=== PATIENT | male | born 1960 | race American Indian/Alaskan Native ===

== ENCOUNTER 2021-08-12 16:43 | Inpatient (IN) | payer SELFPAY ==
[~2021-08-12 16:43] MED LIST: Iopamidol 300 61% 100 ML VIAL FS ONE
[2021-08-12] MEDS ORDERED: Ondansetron PF 4 MG/2 ML Vial ONE (18:01)
[2021-08-12] MEDS ORDERED: Morphine 4 MG/ML VIAL ONE (18:01)
[2021-08-12 18:04] LABS: #Basophils 0.1 10x3/uL (0.0-0.2); #Eosinphils 0.2 10x3/uL (0.0-0.5); #Monocytes 1.3 10x3/uL (0.0-1.1); %Basophils 0.5 % (0.0-2.0); %Eosinophils 1.3 % (0.0-6.0); %Lymphocytes 15.8 % (18.0-47.0); %Monocytes 8.6 % (0.0-10.0); %Neutrophils 73.5 % (40.0-75.0); Hemoglobin 16.4 g/dL (13.5-17.5); Mean Corpuscular HGB CONC 35.7 g/dL (32.0-36.0); Mean Corpuscular Hemoglobin 30.3 pg (27.0-33.0); Mean Corpuscular Volume 84.9 fl (81.2-95.1); Mean Platelet Volume 9.5 fl (7.4-10.4); Platelet Count 212 10x3/uL (150-450); RBC Distribution Width 13.4 % (11.5-14.5); Red Blood Cell (RBC) Count 5.42 10x6/uL (4.32-5.72)
[2021-08-12 18:20] LABS: ALT (SGPT) 6 U/L (8-55); AST (SGOT) 33 U/L (5-34); Albumin 4.2 g/dL (3.5-5.0); Alkaline Phosphatase 108 U/L (40-110); Anion Gap 16 mmol/L (10-20); BUN (Urea Nitrogen) 23 mg/dL (8.4-25.7); Calc. Creatinine Clearance 0 mL/min (70-130); Calcium 9.7 mg/dL (7.8-10.44); Carbon Dioxide 23 mmol/L (22-29); Chloride 96 mmol/L (98-107); Estimated GFR 43; Globulin 5.1 g/dL (2.4-3.5); Glucose 150 mg/dL (70-105); Lipase 133 U/L (8-78); Magnesium 2.7 mg/dL (1.6-2.6); Potassium 3.2 mmol/L (3.5-5.1); Protein, Total 9.3 g/dL (6.0-8.3); Sodium 132 mmol/L (136-145)
[2021-08-12 18:34] LABS: Bilirubin Neg (Negative); Blood, Urine Negative (Negative); Clarity Clear (Clear); Glucose, Urine (Dipstick) >=1000 mg/dL (Negative); Ketone, Urine Negative (Negative); Leukocyte Negative (Negative); Nitrite Negative (Negative); Protein, Urine (Dipstick) 15 mg/dl (Neg-Trace); Specific Gravity, Urine 1.005 (1.002-1.036); Urobilinogen Normal mg/dL (Less than 2)
[2021-08-12 18:49] LABS: Platelet Clumps SLIGHT
[2021-08-12 18:52] LABS: Platelet Morphology Comment PLT clumps seen-ADEQ; RBC Morphology Normal
[2021-08-12 21:04] LABS: SARS-CoV-2 NAA Rapid Test Not Detected (NotDetected)
[2021-08-12] MEDS ORDERED: Piperacillin/Tazobactam 3.375 GM VIAL ONE (21:12)
[2021-08-12 22:06] LABS: Anion Gap 16 mmol/L (10-20); BUN (Urea Nitrogen) 22 mg/dL (8.4-25.7); Calc. Creatinine Clearance 0 mL/min (70-130); Calcium 8.8 mg/dL (7.8-10.44); Carbon Dioxide 21 mmol/L (22-29); Chloride 103 mmol/L (98-107); Estimated GFR 51; Glucose 118 mg/dL (70-105); Potassium 3.5 mmol/L (3.5-5.1); Sodium 136 mmol/L (136-145)
[2021-08-12] MEDS ORDERED: Metoprolol Tartrate 25 MG TAB ONE (22:13)
[2021-08-12] MEDS ORDERED: Dextrose 50% Abboject 50 ML SYRINGE SLOW IVP PRN (22:55)
[2021-08-12] MEDS ORDERED: Guaifenesin DM 100-10/5 ML UDCUP PO PRN (22:55)
[2021-08-12] MEDS ORDERED: HYDROcodone/Acetaminophen 5/325 mg Tablet PO PRN (22:55)
[2021-08-12] MEDS ORDERED: Dextrose 5% in Water 1,000 ML IV PRN (22:55)
[2021-08-12] MEDS ORDERED: Senokot S 8.6-50 MG TAB PO PRN (22:55)
[2021-08-12 23:19] VITALS: BMI 22.9
[2021-08-12] MEDS ORDERED: Trihexyphenidyl 2 MG TAB PO SCH (23:45)
[2021-08-12] MEDS ORDERED: Tamsulosin HCl 0.4 MG CAP PO SCH (23:45)
[2021-08-12] MEDS ORDERED: Carbidopa/Levodopa 10-100 mg Tablet PO SCH (23:45)
[2021-08-12] MEDS ORDERED: clonazePAM 1 MG TAB PO SCH (23:45)
[2021-08-12] MEDS ORDERED: Atorvastatin Calcium 10 MG TAB PO SCH (23:45)
[2021-08-12] MEDS: Lactated Ringer's 1,000 ML IV SCH (23:49)
[2021-08-13] MEDS: Calcium Carbonate 500 MG ChewTAB PO PRN (00:16)
[2021-08-13] MEDS: metroNIDAZOLE 500 MG in Premix Bag 1 BAG IVPB SCH ×3 (00:18→16:50)
[2021-08-13] MEDS: cefTRIAXone\\ROCEPHIN 1 GM in Sodium Chloride 0.9% 100 ML IVPB SCH (00:19)
[2021-08-13] MEDS: Morphine 2 MG/ML VIAL SLOW IVP PRN ×2 (01:01→19:39)
[2021-08-13 04:00] LABS: CRP (Inflammatory) 7.5 mg/dL (= or < 0.5)
[2021-08-13 04:02] LABS: Anion Gap 14 mmol/L (10-20); BUN (Urea Nitrogen) 20 mg/dL (8.4-25.7); Calc. Creatinine Clearance 51 mL/min (70-130); Calcium 8.3 mg/dL (7.8-10.44); Carbon Dioxide 23 mmol/L (22-29); Chloride 105 mmol/L (98-107); Estimated GFR 57; Glucose 103 mg/dL (70-105); Magnesium 2.2 mg/dL (1.6-2.6); Potassium 3.3 mmol/L (3.5-5.1); Sodium 139 mmol/L (136-145)
[2021-08-13 04:03] LABS: #Basophils 0.1 10x3/uL (0.0-0.2); #Eosinphils 0.3 10x3/uL (0.0-0.5); #Monocytes 1.1 10x3/uL (0.0-1.1); #Neutrophils 9.3 10x3/uL (1.5-8.4); %Basophils 0.4 % (0.0-2.0); %Eosinophils 2.3 % (0.0-6.0); %Lymphocytes 17.1 % (18.0-47.0); %Monocytes 8.3 % (0.0-10.0); %Neutrophils 71.7 % (40.0-75.0); Mean Corpuscular Hemoglobin 30.7 pg (27.0-33.0); Mean Corpuscular Volume 85.3 fl (81.2-95.1); Mean Platelet Volume 9.8 fl (7.4-10.4); Platelet Count 185 10x3/uL (150-450); RBC Distribution Width 13.3 % (11.5-14.5); Red Blood Cell (RBC) Count 4.23 10x6/uL (4.32-5.72)
[2021-08-13] MEDS: Potassium Chloride 20 MEQ in Premix Bag 1 BAG IVPB SCH ×2 (06:44→10:49)
[2021-08-13] MEDS ORDERED: Pantoprazole 40 MG VIAL ONE (09:58)
[2021-08-13] MEDS ORDERED: Potassium Chloride 20 MEQ TAB PO SCH (10:00)
[2021-08-13] MEDS: Carbidopa/Levodopa 10-100 mg Tablet PO SCH ×3 (10:26→21:16)
[2021-08-13] MEDS: Trihexyphenidyl 2 MG TAB PO SCH ×2 (10:26→21:55)
[2021-08-13] MEDS: Pantoprazole 40 MG VIAL IVP SCH (10:28)
[2021-08-13] MEDS: Lactated Ringer's 1,000 ML IV SCH ×2 (10:29→21:19)
[2021-08-13 12:47] LABS: Hemoglobin A1c 6.8 % (4.0-6.0)
[2021-08-13] MEDS: Acetaminophen 325 MG TAB PO PRN (15:42)
[2021-08-13] MEDS: Tamsulosin HCl 0.4 MG CAP PO SCH (21:17)
[2021-08-13] MEDS: clonazePAM 1 MG TAB PO SCH (21:55)
[2021-08-13] MEDS: Atorvastatin Calcium 10 MG TAB PO SCH (21:55)
[2021-08-14] MEDS ORDERED: metroNIDAZOLE 500 MG/100 ML BAG ONE (00:13)
[2021-08-14] MEDS: cefTRIAXone\\ROCEPHIN 1 GM in Sodium Chloride 0.9% 100 ML IVPB SCH (00:51)
[2021-08-14] MEDS: metroNIDAZOLE 500 MG in Premix Bag 1 BAG IVPB SCH ×3 (00:52→15:56)
[2021-08-14 05:52] LABS: Anion Gap 15 mmol/L (10-20); BUN (Urea Nitrogen) 21 mg/dL (8.4-25.7); Calc. Creatinine Clearance 58 mL/min (70-130); Calcium 8.4 mg/dL (7.8-10.44); Carbon Dioxide 19 mmol/L (22-29); Chloride 109 mmol/L (98-107); Estimated GFR 66; Glucose 75 mg/dL (70-105); Potassium 3.9 mmol/L (3.5-5.1); Sodium 139 mmol/L (136-145)
[2021-08-14] MEDS: Lactated Ringer's 1,000 ML IV SCH ×2 (06:01→21:06)
[2021-08-14] MEDS ORDERED: Aspirin 81 mg Enteric Coated Tablet PO SCH (09:00)
[2021-08-14] MEDS: Trihexyphenidyl 2 MG TAB PO SCH ×2 (10:15→21:07)
[2021-08-14] MEDS: Pantoprazole 40 MG VIAL IVP SCH (10:16)
[2021-08-14] MEDS: Carbidopa/Levodopa 10-100 mg Tablet PO SCH ×3 (10:16→21:08)
[2021-08-14] MEDS: Acetaminophen 325 MG TAB PO PRN (12:28)
[2021-08-14] MEDS ORDERED: Polyethylene Glycol 3350 17 GM Packet PO SCH (14:15)
[2021-08-14] MEDS ORDERED: Magnesium Citrate 300 ML BOT PO SCH (15:00)
[2021-08-14] MEDS: Calcium Carbonate 500 MG ChewTAB PO PRN (17:16)
[2021-08-14] MEDS: HumaLOG 300 UNITS/3 ML VIAL SC PRN (17:59)
[2021-08-14] MEDS: Ondansetron PF 4 MG/2 ML Vial IVP PRN (18:20)
[2021-08-14 21:01] LABS: Bilirubin Neg (Negative); Blood, Urine 150 (Negative); Clarity Clear (Clear); Glucose, Urine (Dipstick) >=1000 mg/dL (Negative); Ketone, Urine 50 mg/dL (Negative); Leukocyte 25 (Negative); Nitrite Negative (Negative); Protein, Urine (Dipstick) Negative (Neg-Trace); Specific Gravity, Urine 1.015 (1.002-1.036); Urobilinogen Normal mg/dL (Less than 2)
[2021-08-14 21:05] LABS: Urine Culture Reflex No No
[2021-08-14] MEDS: Atorvastatin Calcium 10 MG TAB PO SCH (21:07)
[2021-08-14 21:08] LABS: Bacteria/HPF None Seen HPF (None Seen); Squamous Epithelial None Seen HPF (0-3); WBC/HPF 0-3 HPF (0-3)
[2021-08-14] MEDS: Tamsulosin HCl 0.4 MG CAP PO SCH (21:08)
[2021-08-14] MEDS: clonazePAM 1 MG TAB PO SCH (21:08)
[2021-08-14] MEDS: Polyethylene Glycol 3350 17 GM Packet PO SCH (21:08)
[2021-08-15] MEDS ORDERED: metroNIDAZOLE 500 MG/100 ML BAG ONE (00:03)
[2021-08-15] MEDS: cefTRIAXone\\ROCEPHIN 1 GM in Sodium Chloride 0.9% 100 ML IVPB SCH (00:13)
[2021-08-15] MEDS: metroNIDAZOLE 500 MG in Premix Bag 1 BAG IVPB SCH ×2 (00:13→08:43)
[2021-08-15 04:12] LABS: Actual Bicarbonate (HCO3v) 23 mEq/L (22-28); Base Excess 0.4 mEq/L (-2.0 to +3.0); Calcium, Ionized (venous) 1.06 mmol/L (1.16-1.32); Chloride (VBG) 107 mmol/L (98-106); Hemoglobin (Hb) 12.8 g/dL (13.1-17.2); Potassium (VBG) 3.21 mmol/L (3.70-5.30); Puncture Site Other Site; Sodium 136.3 mmol/L (133-146); pH (venous) 7.48 (7.32-7.43)
[2021-08-15 04:31] LABS: #Eosinphils 0.3 10x3/uL (0.0-0.5); #Monocytes 0.7 10x3/uL (0.0-1.1); #Neutrophils 4.5 10x3/uL (1.5-8.4); %Basophils 0.6 % (0.0-2.0); %Eosinophils 4.5 % (0.0-6.0); %Lymphocytes 19.1 % (18.0-47.0); %Monocytes 10.6 % (0.0-10.0); %Neutrophils 64.8 % (40.0-75.0); Hemoglobin 12.1 g/dL (13.5-17.5); Mean Corpuscular HGB CONC 35.9 g/dL (32.0-36.0); Mean Corpuscular Hemoglobin 30.7 pg (27.0-33.0); Mean Corpuscular Volume 85.5 fl (81.2-95.1); Mean Platelet Volume 9.7 fl (7.4-10.4); Platelet Count 203 10x3/uL (150-450); RBC Distribution Width 13.1 % (11.5-14.5); Red Blood Cell (RBC) Count 3.94 10x6/uL (4.32-5.72); White Blood Cell (WBC) Count 6.9 10x3/uL (3.5-10.5)
[2021-08-15 05:02] LABS: ALT (SGPT) 7 U/L (8-55); AST (SGOT) 32 U/L (5-34); Albumin 2.9 g/dL (3.5-5.0); Alkaline Phosphatase 73 U/L (40-110); Anion Gap 15 mmol/L (10-20); BUN (Urea Nitrogen) 19 mg/dL (8.4-25.7); Bilirubin, Total 0.4 mg/dL (0.2-1.2); CRP (Inflammatory) 7.82 mg/dL (= or < 0.5); Calc. Creatinine Clearance 58 mL/min (70-130); Calcium 8.2 mg/dL (7.8-10.44); Carbon Dioxide 19 mmol/L (22-29); Chloride 108 mmol/L (98-107); Estimated GFR 66; Globulin 3.4 g/dL (2.4-3.5); Glucose 120 mg/dL (70-105); Magnesium 1.9 mg/dL (1.6-2.6); Potassium 3.3 mmol/L (3.5-5.1); Protein, Total 6.3 g/dL (6.0-8.3); Sodium 139 mmol/L (136-145)
[2021-08-15] MEDS ORDERED: Bisacodyl 5 MG TAB PO SCH (07:45)
[2021-08-15] MEDS ORDERED: Bisacodyl 10 MG SUPP PR SCH (07:45)
[2021-08-15] MEDS ORDERED: Morphine 4 MG/ML VIAL SLOW IVP PRN (07:47)
[2021-08-15] MEDS ORDERED: Fleet Enema 133 ML BOT PR PRN (07:49)
[2021-08-15] MEDS ORDERED: HYDROmorphone 0.5 MG/0.5 ML SYRINGE SLOW IVP SCH (08:00)
[2021-08-15] MEDS: Polyethylene Glycol 3350 17 GM Packet PO SCH ×2 (08:39→22:12)
[2021-08-15] MEDS: Senokot S 8.6-50 MG TAB PO SCH ×2 (08:41→22:12)
[2021-08-15] MEDS: Carbidopa/Levodopa 10-100 mg Tablet PO SCH ×3 (08:42→22:11)
[2021-08-15] MEDS: Trihexyphenidyl 2 MG TAB PO SCH ×2 (08:42→22:12)
[2021-08-15] MEDS: Ondansetron PF 4 MG/2 ML Vial IVP PRN (08:42)
[2021-08-15] MEDS: Potassium Chloride 20 MEQ in Premix Bag 1 BAG IVPB SCH ×2 (08:43→10:43)
[2021-08-15] MEDS: Lactated Ringer's 1,000 ML IV SCH ×2 (08:44→16:07)
[2021-08-15] MEDS: Aspirin 81 mg Enteric Coated Tablet PO SCH (08:45)
[2021-08-15] MEDS: Pantoprazole 40 MG VIAL IVP SCH (08:45)
[2021-08-15] MEDS ORDERED: Polyethylene Glycol 3350 17 GM Packet PO SCH (09:00)
[2021-08-15] MEDS: HumaLOG 300 UNITS/3 ML VIAL SC PRN (18:14)
[2021-08-15] MEDS: Atorvastatin Calcium 10 MG TAB PO SCH (22:11)
[2021-08-15] MEDS: clonazePAM 1 MG TAB PO SCH (22:11)
[2021-08-15] MEDS: Tamsulosin HCl 0.4 MG CAP PO SCH (22:12)
[2021-08-16 04:21] LABS: #Eosinphils 0.3 10x3/uL (0.0-0.5); #Monocytes 0.9 10x3/uL (0.0-1.1); #Neutrophils 4.2 10x3/uL (1.5-8.4); %Basophils 0.6 % (0.0-2.0); %Eosinophils 4.8 % (0.0-6.0); %Lymphocytes 21.6 % (18.0-47.0); %Monocytes 12.5 % (0.0-10.0); %Neutrophils 60.1 % (40.0-75.0); Mean Corpuscular HGB CONC 36.1 g/dL (32.0-36.0); Mean Corpuscular Volume 85.8 fl (81.2-95.1); Mean Platelet Volume 10.1 fl (7.4-10.4); Platelet Count 205 10x3/uL (150-450); Red Blood Cell (RBC) Count 3.87 10x6/uL (4.32-5.72)
[2021-08-16 04:40] LABS: ALT (SGPT) 8 U/L (8-55); AST (SGOT) 40 U/L (5-34); Alkaline Phosphatase 79 U/L (40-110); Anion Gap 14 mmol/L (10-20); BUN (Urea Nitrogen) 11 mg/dL (8.4-25.7); Bilirubin, Total 0.5 mg/dL (0.2-1.2); Calc. Creatinine Clearance 58 mL/min (70-130); Calcium 8.2 mg/dL (7.8-10.44); Carbon Dioxide 21 mmol/L (22-29); Chloride 107 mmol/L (98-107); Estimated GFR 66; Globulin 3.6 g/dL (2.4-3.5); Glucose 128 mg/dL (70-105); Magnesium 1.8 mg/dL (1.6-2.6); Potassium 3.6 mmol/L (3.5-5.1); Protein, Total 6.6 g/dL (6.0-8.3); Sodium 138 mmol/L (136-145)
[2021-08-16] MEDS: Lactated Ringer's 1,000 ML IV SCH ×2 (06:35→08:59)
[2021-08-16] MEDS: Aspirin 81 mg Enteric Coated Tablet PO SCH (08:59)
[2021-08-16] MEDS: Pantoprazole 40 MG VIAL IVP SCH (09:00)
[2021-08-16] MEDS: Senokot S 8.6-50 MG TAB PO SCH (09:00)
[2021-08-16] MEDS: Polyethylene Glycol 3350 17 GM Packet PO SCH (09:00)
[2021-08-16] MEDS: Carbidopa/Levodopa 10-100 mg Tablet PO SCH (09:00)
[2021-08-16] MEDS: Trihexyphenidyl 2 MG TAB PO SCH (09:00)
[2021-08-16 11:47] VITALS: TEMP 99.5
[2021-08-16 11:52] VITALS: BP 128/68
== END 2021-08-16 13:46 | disposition home or self-care (01) | DRG 392 ==
LOC: CSHERS 16:43 → CSHTELE 23:14
PROVIDERS: ADMIT Student in an Organized Health Care Education/Training Program; ATTEND Family Medicine
DX: K52.9 Noninfective gastroenteritis and colitis, unspecified (principal); N17.9 Acute kidney failure, unspecified; I47.2 Ventricular tachycardia; R04.2 Hemoptysis; K59.00 Constipation, unspecified; G20 Parkinson's disease; Z20.822 Contact with and (suspected) exposure to COVID-19; E87.6 Hypokalemia; E11.65 Type 2 diabetes mellitus with hyperglycemia; F02.80 Dementia in other diseases classified elsewhere, unspecified severity, without behavioral disturbance, psychotic disturbance, mood disturbance, and anxiety; E11.22 Type 2 diabetes mellitus with diabetic chronic kidney disease; I12.9 Hypertensive chronic kidney disease with stage 1 through stage 4 chronic kidney disease, or unspecified chronic kidney disease; D72.829 Elevated white blood cell count, unspecified; E86.0 Dehydration; R33.9 Retention of urine, unspecified; F41.9 Anxiety disorder, unspecified; N18.9 Chronic kidney disease, unspecified
CPT/HCPCS: 36415; 36416; 71045; 74019; 74022; 74177; 80048; 80053; 81001; 81003; 82805; 83036; 83605; 83690; 83735; 83880; 84145; 85025; 85652; 86140; 93005; 93010; 94760; 96361; 96365; 96375; C9113; J0696; J1170; J1815; J2270; J2405; J2543; J3480; J3490; J7120; Q9967; U0002